=== PATIENT | male | born 1950 | race Caucasian/White ===

== ENCOUNTER 2019-05-11 07:13 | Day surgery (SDC) | payer MEDICARE, BC ==
[2019-05-09 09:36] VITALS: BMI 27.1
[~2019-05-11 07:13] MED LIST: LACTATED RINGERS 1,000 ML IV SCH; LIDOCAINE 1% 20 ML VIAL (10MG/ML) FOR IV START INTRADERMA PRN
[2019-05-11] MEDS ORDERED: PROPOFOL 10 MG/ML 20 ML VIAL IV ONE (07:57)
--- NOTE | 2019-05-11 08:19 | P.PCN ---
Date of Procedure: 05/11/19 Procedure(s) Performed: BRIEF HISTORY: Patient is a 68-year-old pleasant male scheduled for an elective colonoscopy as a part of screening for colorectal neoplasia. PROCEDURE PERFORMED: Colonoscopy with snare polypectomy. PREOPERATIVE DIAGNOSIS: Screening for colon cancer. IV sedation per Anesthesia. PROCEDURE: After informed consent was obtained, the patient, was brought into the endoscopy unit. IV sedation was administered by Anesthesia under continuous monitoring. Digital rectal examination was normal. Initially the Olympus CF-160 flexible video colonoscope was then inserted in the rectum, gradually advanced into the cecum without any difficulty. Careful examination was performed as the scope was gradually being withdrawn. Ileocecal valve and the appendiceal orifice were visualized and appeared normal. Prep was excellent. Mucosa of the cecum, appeared normal. In the ascending colon there was a 1 cm broad-based polyp that was removed by snare polypectomy. In the hepatic flexure there was a 2.5 cm broad-based polyp that was removed by piecemeal snare polypectomy and complete polypectomy was accomplished. Rest of the ascending colon, transverse colon, descending colon, sigmoid colon, and rectum appeared normal. Scattered sigmoidal diverticulosis seen. Retroflexion was performed in the rectum and no lesions were seen. The patient tolerated the procedure well. IMPRESSION: 1 cm broad-based ascending colon polyp status post polypectomy 2.5 cm broad-based hepatic flexure polyp status post piecemeal snare polypectomy and complete polypectomy accomplished Scattered sigmoidal diverticulosis. RECOMMENDATIONS: Findings of this examination were discussed with the patient as well as his family. He was advised to follow with the biopsy results. If the biopsy shows an adenoma he can have a repeat colonoscopy in 3 years.
[2019-05-11 08:23] VITALS: PULSE 78
[2019-05-11 08:44] VITALS: BP 144/90; RESP 16
== END 2019-05-11 08:52 | disposition home or self-care (01) ==
LOC: ORWHC2ENDO 07:13
PROVIDERS: ATTEND Internal Medicine Gastroenterology
DX: Z12.11 Encounter for screening for malignant neoplasm of colon (principal); D17.79 Benign lipomatous neoplasm of other sites; K63.5 Polyp of colon; D12.3 Benign neoplasm of transverse colon; K57.30 Diverticulosis of large intestine without perforation or abscess without bleeding; I25.10 Atherosclerotic heart disease of native coronary artery without angina pectoris; I10 Essential (primary) hypertension; Z87.891 Personal history of nicotine dependence; E78.5 Hyperlipidemia, unspecified; K21.9 Gastro-esophageal reflux disease without esophagitis; I25.2 Old myocardial infarction; Z95.5 Presence of coronary angioplasty implant and graft; Z79.1 Long term (current) use of non-steroidal anti-inflammatories (NSAID); Z79.82 Long term (current) use of aspirin; Z79.899 Other long term (current) drug therapy
CPT/HCPCS: 88305; 45385; J2704

== ENCOUNTER → 2020-10-09 | Outpatient (CLI) | payer MEDICARE, BC ==
[2020-10-09 21:00] LABS: Cyclic Citrull Pep IgG Unit 0.9 U/mL; Cyclic Citrullinated Pep IgG NEGATIVE (NEGATIVE)
[2020-10-09 21:15] LABS: Basophils # (A) 0.04 X 10*3/uL (0.00-0.10); Basophils % (A) 0.5 %; Eosinophils # (A) 0.46 X 10*3/uL (0.04-0.35); Eosinophils % (A) 5.3 %; HCT 41.7 % (39.6-50.0); HGB 13.1 g/dL (13.0-17.0); Lymphocytes # (A) 1.65 X 10*3/uL (0.90-5.00); Lymphocytes % (A) 19.1 %; MCHC 31.4 g/dL (32.0-37.0); MCV 98.8 fL (80.0-97.0); Mean Platelet Volume 10.3 fL (9.5-12.2); Monocytes # (A) 0.74 X 10*3/uL (0.20-1.00); Monocytes % (A) 8.6 %; Neutrophils # (A) 5.72 X 10*3/uL (1.80-7.70); Neutrophils % (A) 66.2 %; Platelet Count 216 X 10*3/uL (140-440); RBC 4.22 X 10*6/uL (4.40-5.60); RDW 13.2 % (11.5-14.5); WBC 8.64 X 10*3/uL (4.50-10.00)
[2020-10-09 23:15] LABS: Erythrocyte Sedimentation Rate 13 mm/Hr (0-20)
[2020-10-10 01:47] LABS: ALT 33 U/L (10-49); AST 26 U/L (14-35); African American GFR (CKD) 106.4 (60.0-200.0); BUN/Creat Ratio 28.75 Ratio (12.00-20.00); C Reactive Protein <0.4 mg/dL (0.0-0.8); Calcium 9.6 mg/dL (8.7-10.3); Carbon Dioxide 23.4 mmol/L (21.6-31.8); Chloride 109 mmol/L (96-109); Creatine Kinase 95 U/L (35-257); Glucose 85 mg/dL (70-110); Non-African American GFR(CKD) 91.8 (60.0-200.0); Potassium 4.1 mmol/L (3.5-5.5); Rheumatoid Factor, Qnt <4 IU/mL (0-15); Sodium 142 mmol/L (135-145); Uric Acid 5.1 mg/dL (3.7-8.7)
[2020-10-10 13:48] LABS: Angiotensin-1 Converting Enz. 43 U/L (8-52)
[2020-10-10 14:07] LABS: HLA B27 NEGATIVE
== END | disposition home or self-care (01) ==
LOC: LABWHC1 10:01
PROVIDERS: ATTEND Orthopaedic Surgery
DX: G56.03 Carpal tunnel syndrome, bilateral upper limbs (principal); M25.531 Pain in right wrist; M25.532 Pain in left wrist; R20.2 Paresthesia of skin; E55.9 Vitamin D deficiency, unspecified; M06.4 Inflammatory polyarthropathy; E03.9 Hypothyroidism, unspecified; E03.8 Other specified hypothyroidism
CPT/HCPCS: 36415; 80048; 82164; 82306; 82550; 83520; 84439; 84443; 84450; 84460; 84550; 85025; 85652; 86038; 86140; 86200; 86431; 86812

== ENCOUNTER → 2022-10-20 | Outpatient (CLI) | payer MEDICARE, BC ==
--- NOTE | 2022-10-20 09:02 | US ---
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 Indirect Doppler criteria was utilized. FINDINGS: EXAM MEASUREMENTS: RIGHT: Peak Systolic Velocity (PSV) cm/sec ----- Right CCA: 74.9 ----- Right ICA: 157.2 ----- Right ECA: 152.3 ICA/CCA ratio: 2.1 RIGHT: End Diastole cm/sec ----- Right CCA: 19.4 ----- Right ICA: 24.7 ----- Right ECA: 24.7 LEFT: Peak Systolic Velocity (PSV) cm/sec ----- Left CCA: 79.1 ----- Left ICA: 94.1 ----- Left ECA: 112.4 ICA/CCA ratio: 1.2 LEFT: End Diastole cm/sec ----- Left CCA: 22.4 ----- Left ICA: 33.7 ----- Left ECA: 7.4 VERTEBRALS (direction of flow): Right Vertebral: Antegrade Left Vertebral: Antegrade Rhythm: Normal YARD HOSTLER NOTES: Heterogeneous plaque bilaterally Moderate to severe eccentric plaque right carotid bulb with increased peak systolic velocity in abnor mal ratio. Mild to moderate peripheral plaque left carotid bulb. IMPRESSION: Asymmetric increased atherosclerotic change right carotid bulb with stenosis just over 5 0% not entirely excluded. Consider CTA of the neck to further evaluate. Criteria for Assigning % of Stenosis / Diameter reduction (Estimation based on the indirect measurements of the internal carotid artery velocities (ICA PSV). 1. Normal (no stenosis)=ICA PSV < 125 cm/s: ratio < 2.0: ICA EDV<40 cm/s. 2. Less than 50% stenosis=ICA PSV < 125 cm/s: ratio < 2.0: ICA EDV<40 cm/s. 3. 50 to 69% stenosis=ICA PSV of 125 to 230 cm/s: ration 2.0 ? 4.0: ICA EDV 40-100 cm/s. 4. Greater than 70% stenosis to near occlusion= ICA PSV > 230 cm/s: ratio > 4.0: ICA EDV > 100 cm/s. 5. Near occlusion= ICA PSV velocities may be low or undetectable: variable ratio and ICA EDV. 6. Total occlusion=unable to detect flow.
== END | disposition home or self-care (01) ==
LOC: RADUSWWP 08:08
PROVIDERS: ATTEND Internal Medicine
DX: I65.23 Occlusion and stenosis of bilateral carotid arteries (principal)
CPT/HCPCS: 93880

== ENCOUNTER 2023-12-30 08:40 | Day surgery (SDC) | payer BC, MEDICARE ==
[2023-12-28 14:52] VITALS: BMI 29.7
[2023-12-30] MEDS: IV FLUID CONTINUATION 1,000 ML IV ONE (09:03)
[2023-12-30 09:05] VITALS: RESP 16; TEMP 97.4
[2023-12-30] MEDS: LACTATED RINGERS 1,000 ML IV SCH (09:13)
[2023-12-30] MEDS ORDERED: PROPOFOL 10 MG/ML 20 ML VIAL IV ONE (09:22)
--- NOTE | 2023-12-30 09:43 | P.PCN ---
Date of Procedure: 12/30/23 Procedure(s) Performed: BRIEF HISTORY: Patient is a 73-year-old pleasant white male scheduled for an elective colonoscopy as a part of evaluation by history of colon polyps. PROCEDURE PERFORMED: Colonoscopy with biopsy. PREOPERATIVE DIAGNOSIS: History of colon polyps. IV sedation per Anesthesia. PROCEDURE: After informed consent was obtained, the patient, was brought into the endoscopy unit. IV sedation was administered by Anesthesia under continuous monitoring. Digital rectal examination was normal. Initially the Olympus CF-160 flexible video colonoscope was then inserted in the rectum, gradually advanced into the cecum without any difficulty. Careful examination was performed as the scope was gradually being withdrawn. Ileocecal valve and the appendiceal orifice were visualized and appeared normal. Prep was excellent. Mucosa of the cecum, ascending colon, appeared normal. The transverse colon there was a 5 mm polyp that was removed by cold biopsy. Rest of the transverse colon, descending colon, sigmoid colon, and rectum appeared normal moderate sigmoid diverticulosis.. Retroflexion was performed in the rectum and no lesions were seen. The patient tolerated the procedure well. IMPRESSION: 45 mm transverse colon polyp status post cold biopsy Moderate sigmoid diverticular RECOMMENDATIONS: Findings of this examination were discussed with the patient as well as his family. He was advised to follow-up with the biopsy results. If the biopsy reveals adenoma he can have repeat colonoscopy in 5 years..
[2023-12-30 10:02] VITALS: BP 142/74; PULSE 61
== END 2023-12-30 10:30 | disposition home or self-care (01) ==
LOC: ORWHC2ENDO 08:40
PROVIDERS: ATTEND Internal Medicine Gastroenterology
DX: Z12.11 Encounter for screening for malignant neoplasm of colon (principal); D12.3 Benign neoplasm of transverse colon; Z86.010 Personal history of colon polyps
CPT/HCPCS: 88305; 45380; J2704

== ENCOUNTER → 2024-05-13 | Outpatient (CLI) | payer MEDICARE ==
[2024-05-13 07:47] LABS: African American GFR (CKD) >90 (>60 ml/min/1.73 sqM); Blood Urea Nitrogen 17 mg/dL (9-20); Non-African American GFR(CKD) >90 (>60 ml/min/1.73 sqM)
--- NOTE | 2024-05-15 20:04 | CT ---
EXAMINATION TYPE: CT angio neck DATE OF EXAM: 05/13/2024 8:45 AM COMPARISON: None. CLINICAL INDICATION: Male, 73 years old with history of I65.23 OCCLUSION AND CAROTID STENOSIS, caroti d stenosis TECHNIQUE: CTA scan is performed with axial images are obtained, coronal and sagittal reformatted sirena ges are reviewed. 3-D reconstructed images are created on an independent workstation and reviewed. S ource images are reviewed. NASCET criteria was used in interpretation of this exam? Contrast used:65ml mL of Isovue 370 with IV Contrast, (none if empty) Oral contrast used: (none if empty) CT DLP: 419.3 mGycm, Automated exposure control for dose reduction was used. FINDINGS: Carotid/Vascular Structures: There is a 3 vessel arch. Common carotid arteries bifurcate into internal and external carotid arteries. Vascular calcification s present at the carotid bifurcations. This is contributing to a moderate stenosis of the right inter nal carotid artery origin is 63%. Significant flow-limiting stenosis of left internal carotid artery is not identified on source images. 3-D reconstruction images appear to have severe narrowing of the external carotid artery origins. Right vertebral artery is dominant.. Internal carotid arteries and vertebral arteries are patent to the skull base. Cervical of Martin: Vertebral basilar system appears normal. Posterior cerebral vasculature is unrema rkable. Internal carotid arteries bifurcate normally into A1 and M1 segments. A2 segments are normal. The anterior communicating artery is patent. The right posterior communicating artery is patent. The left posterior communicating artery is patent. IMPRESSION: 1. Moderate stenosis right internal carotid artery origin. 2. Atheromatous plaquing bilateral carotid bifurcations. It may be severe stenosis of the external ca rotid arteries based on the 3-D reconstructed images. 3. Normal [place] [facility], , 05/15/2024 8:01 PM
== END | disposition home or self-care (01) ==
LOC: RADCTMAIN 06:50
PROVIDERS: ATTEND Internal Medicine
DX: I65.23 Occlusion and stenosis of bilateral carotid arteries (principal)
CPT/HCPCS: 82565; 84520; 70498; 36415; Q9967

== ENCOUNTER → 2024-11-02 | Outpatient (CLI) | payer MEDICARE ==
[2024-11-02 10:26] LABS: HCT 38.9 % (39.6-50.0); MCH 31.4 pg (27.0-32.0); MCHC 33.4 g/dL (32.0-37.0); Mean Platelet Volume 9.5 FL (9.5-12.2); NRBC Per 100 WBC 0 X 10*3/uL (0.00-0.01); Platelet Count 234 X 10*3/uL (140-440); RBC 4.14 X 10*6/uL (4.40-5.60); RDW 13.5 % (11.5-14.5); WBC 6.88 X 10*3/uL (4.50-10.00)
[2024-11-02 10:27] LABS: Basophils # (A) 0.05 X 10*3/uL (0.00-0.10); Basophils % (A) 0.7 %; Eosinophils # (A) 0.36 X 10*3/uL (0.04-0.35); Eosinophils % (A) 5.2 %; Lymphocytes # (A) 1.48 X 10*3/uL (0.90-5.00); Lymphocytes % (A) 21.5 %; Monocytes # (A) 0.61 X 10*3/uL (0.20-1.00); Monocytes % (A) 8.9 %; Neutrophils # (A) 4.36 X 10*3/uL (1.80-7.70); Neutrophils % (A) 63.4 %
== END | disposition home or self-care (01) ==
LOC: LABWHC1 07:00
PROVIDERS: ATTEND Surgery
DX: Z01.818 Encounter for other preprocedural examination (principal); K40.90 Unilateral inguinal hernia, without obstruction or gangrene, not specified as recurrent
CPT/HCPCS: 36415; 85025; 86850; 86900; 86901; 93005

== ENCOUNTER 2024-11-11 06:20 | Day surgery (SDC) | payer MEDICARE ==
[2024-11-02 10:56] VITALS: BMI 31.9
[2024-11-11] MEDS: IV FLUID CONTINUATION 1,000 ML IV ONE ×3 (06:51→09:29)
[2024-11-11] MEDS: ACETAMINOPHEN TAB 500 MG TAB PO PRN (07:06)
[2024-11-11] MEDS: LACTATED RINGERS 1,000 ML BAG IV STA (07:06)
[2024-11-11] MEDS: ONDANSETRON 4 MG/2 ML VIAL IVP PRN (07:07)
[2024-11-11] MEDS: HEPARIN SODIUM,PORCINE 5,000 UNIT/ML 1 ML VIAL SQ PRN (07:08)
[2024-11-11] MEDS: DEXAMETHASONE SOD PHOSPHATE 4 MG/ML 1 ML VIAL IVP STA (07:08)
[2024-11-11] MEDS: TAMSULOSIN 0.4 MG CAP.ER.24H PO STA (07:23)
[2024-11-11] MEDS ORDERED: ROCURONIUM 10 MG/ML (5 ML VIAL) IV ONE (07:25)
[2024-11-11] MEDS ORDERED: fentaNYL (PF) 50 MCG/ML 2 ML AMP ONE (07:25)
[2024-11-11] MEDS ORDERED: KETOROLAC 15 MG/ML 1 ML VIAL ONE (07:25)
[2024-11-11] MEDS ORDERED: MIDAZOLAM 2 MG/2 ML VIAL ONE (07:25)
[2024-11-11] MEDS ORDERED: LIDOCAINE 1% INJ 10MG/ML (20 ML MDV) ONE (07:25)
[2024-11-11] MEDS ORDERED: PROPOFOL 10 MG/ML 20 ML VIAL IV ONE (07:25)
[2024-11-11] MEDS ORDERED: NEOSTIGMINE 1 MG/ML 10 ML VIAL ONE (07:25)
[2024-11-11] MEDS ORDERED: SUCCINYLCHOLINE CHLORIDE 200 MG/10 ML VIAL IV ONE (07:25)
[2024-11-11] MEDS ORDERED: GLYCOPYRROLATE 0.2 MG/ML 2 ML VIAL ONE (07:25)
[2024-11-11] MEDS: ceFAZolin 2 GM in DEXTROSE 5% IN WATER 50 ML IVPB PRN (07:28)
[2024-11-11] MEDS: BUPIVACAINE (PF) 0.25% 30 ML VIAL SQ ONE (07:51)
--- NOTE | 2024-11-11 09:10 | P.OP ---
Date of Procedure: 11/11/24 Procedure(s) Performed: PREOPERATIVE DIAGNOSIS: Left inguinal hernia POSTOPERATIVE DIAGNOSIS: Same PROCEDURE: Laparoscopic da Letitia assisted repair left inguinal hernia with mesh, excision left cord lipoma SURGEON: Dr. Altman ANESTHESIA: General EBL: 5 cc OPERATIVE PROCEDURE DETAILS: Patient was placed in the operating table in the supine position. The patient was placed under general anesthesia. The abdomen was prepped and draped in usual sterile fashion. A small curvilinear supraumbilical incision was made. The fascia was retracted anteriorly with Denis forceps. The Veress needle was inserted. The saline drop test was normal. Insufflation took place to 15 mmHg. An 8 mm trocar was placed into the peritoneal cavity. 2 additional 8 mm trochars were placed in the right upper quadrant and left upper quadrant under visualization. The robotic arms were then brought in and docked into place. The fenestrated bipolar was used in the left arm and the laparoscopic yandel was utilized in the right arm. A 30Â° 8 mm scope was used in the up position. The peritoneal cavity was inspected. The patient had a small right inguinal hernia indirect in nature. The start of a tiny depression on the left side was noted as well. This was asymptomatic. The peritoneum was incised in a horizontal fashion cephalad to the internal inguinal ring. Following that careful dissection of the preperitoneal space took place. This took place using both electrocautery, sharp dissection but primarily blunt dissection. Visualization of the pubic tubercle and Lucien's ligament took place medially. Full dissection took place laterally as well. The hernia sac was fully dissected. The patient had a moderate-sized cord lipoma that was excised using electrocautery. This was removed later using an Endo Catch bag and sent to pathology. Once we had adequate space the [id number] Progrip mesh was advanced into the preperitoneal space and flattened out appropriately to cover all potential hernia sites. The mesh was sutured medially to the folding edge of Lucien's ligament. This was performed using a absorbable 3-0 V-Loc suture. The peritoneal defect was then closed using a absorbable 2-0 VLok suture. The hernia sac was incorporated into the peritoneal closure to help prevent future recurrence. The pneumoperitoneum was then evacuated. The skin of all 3 sites was closed using a 4-0 Monocryl stitch. Skin glue was then applied. TYPE OF MESH USED: ProGrip 15 cm LOCATION OF MESH: [place]ubl[place] preperitoneal FIXATION: Absorbable 3 oh V-Loc PREOPERATIVE DISCUSSION ON SMOKING CESSASTION: Yes PREOPERATIVE DISCUSSION ON MORBID OBESITY: Yes PREOPERATIVE DISCUSSION ON APPROPRIATE USE OF NARCOTIC USE: Yes PREOPERATIVE EDUCATION: Multi Modal, Smoking Cessation and Weight Loss with BMI over 35. DISPOSITION: Stable to recovery room
[2024-11-11 09:27] VITALS: TEMP 97
[2024-11-11 10:14] VITALS: RESP 16
[2024-11-11 10:40] VITALS: BP 108/63; PULSE 65
[2024-11-11] MEDS ORDERED: IBUPROFEN 600 MG TAB PO SCH (12:00)
[2024-11-11] MEDS ORDERED: ACETAMINOPHEN TAB 325 MG TAB PO SCH (15:00)
== END 2024-11-11 11:16 | disposition home or self-care (01) ==
LOC: OR 06:20
PROVIDERS: ATTEND Surgery
DX: K40.90 Unilateral inguinal hernia, without obstruction or gangrene, not specified as recurrent (principal); D17.6 Benign lipomatous neoplasm of spermatic cord; Z95.5 Presence of coronary angioplasty implant and graft
CPT/HCPCS: 49650; 55520; S2900; 88304